=== PATIENT | female | born 1980 | race Caucasian/White ===

== ENCOUNTER 2017-11-02 09:28 | Emergency (ER) | payer OTHER ==
[2017-11-02 09:49] VITALS: BP 97/65
--- NOTE | 2017-11-02 10:08 | UC ---
Skin Complaint HPI - HPI Summary HPI Summary: 37 y/o presents to the urgent c/o red rash and yellowish discharge s/p insect bite since Saturday10/30/2017. Pt is concerned since yesterday she saw mild purulent discharge. seh has applied a [place]ien oint. medication Verutex w/o any improvement. Pain at touch is 4/10 and it is warm. Pt dneies fever, Hx of MRSA, SOB, chest pain, abdominal pain, SILVERMAN,N/V/D - History of Current Complaint Chief Complaint: UCSkin Time Seen by Provider: 11/02/17 09:49 Stated Complaint: BUG BITE Hx Obtained From: Patient Hx Last Menstrual Period: 10/18/17 ?: No Onset/Duration: Sudden Onset, Lasting Days - 4 days, Still Present, Worse Since - yesterday Skin Exposure Onset/Duration: Days Ago - 4 days Timing: Constant Onset Severity: Mild Current Severity: Mild Pain Intensity: 4 Pain Scale Used: 0-10 Numeric Location: Other - forehead rash s/p insect bite Character: Redness, Raised, Painful Aggravating Factor(s): Touch Alleviating Factor(s): OTC Meds Associated Signs & Symptoms: Positive: Rash, Drainage, Tenderness. Negative: Fever, Chills Related History: Possible Reaction to: Insect - Allergy/Home Medications Allergies/Adverse Reactions: Allergies Allergy/AdvReac Type Severity Reaction Status Date / Time No Known Allergies Allergy Verified 11/02/17 09:37 Home Medications: Home Medications Fusidic Acid 1 applic TID 11/02/17 [History Confirmed 11/02/17] Review of Systems Constitutional: Negative Skin: Rash - forehead red, painful and w/ yellowish drainage s/p insect bite Eyes: Negative ENT: Negative Respiratory: Negative Cardiovascular: Negative Gastrointestinal: Negative Genitourinary: Negative Motor: Negative Neurovascular: Negative Musculoskeletal: Negative Neurological: Negative Psychological: Negative Is Patient Immunocompromised?: No All Other Systems Reviewed And Are Negative: Yes PMH/Surg Hx/FS Hx/Imm Hx Previously Healthy: Yes - Pt denies PMHX - Surgical History Surgery Procedure, Year, and Place: Bilat eye surgery - myopia 2010 - Family History Known Family History: Positive: Cardiac Disease, Hypertension - Social History Occupation: Employed Full-time Lives: With Family Alcohol Use: None Substance Use Type: None Smoking Status (MU): Never Smoked Tobacco Physical Exam - Summary Physical Exam Summary: Vital Signs Reviewed: Yes General: well developed, well nourished female sitting in the examining table w/ o any apparent distress. Eyes: Positive: Conjunctiva Clear - PERRLA, EOMI ENT: Positive: Normal ENT inspection, Hearing grossly normal, Pharynx normal, TMs normal Neck: Positive: Supple, Nontender, No Lymphadenopathy Respiratory: Positive: Chest nontender, Lungs clear, Normal breath sounds Cardiovascular: Positive: RRR, No Murmur, Pulses Normal Abdomen Description: Positive: Nontender, No Organomegaly, Soft. Negative: CVA Tenderness (R), CVA Tenderness (L) Bowel Sounds: Positive: Present Musculoskeletal: Positive: Strength Intact, ROM Intact, No Edema Neurological Exam: Normal Psychological Exam: Normal Skin: Positive: rashes - mid forehead erythematous patch w/ indistinct borders , warm to touch, mild swelling and tender to palpation about 1.0cm x 0.8cm in size. central induration w/ mild yellowish drainage. Triage Information Reviewed: Yes Vital Signs: Initial Vital Signs Temp 98.2 F 11/02/17 09:40 Pulse 66 11/02/17 09:40 Resp 18 11/02/17 09:40 BP 97/65 11/02/17 09:40 Pulse Ox 98 11/02/17 09:40 Course/Dx - Course Course Of Treatment: 37 y/o presents to the urgent c/o red rash and yellowish discharge s/p insect bite since Saturday10/30/2017. Pt is concerned since yesterday she saw mild purulent discharge. seh has applied a [place] oint. medication Verutex w/o any improvement. Pain at touch is 4/10 and it is warm. Pt dneies fever, Hx of MRSA, SOB, chest pain, abdominal pain, SILVERMAN,N/V/D. Hx obtained. Pt w/mid forehead erythematous patch w/ indistinct borders, warm to touch, mild swelling and tender to palpation about 1.0cm x 0.8cm in size. central induration w/ mild yellowish drainage on examiantion. Pt w/ cellulitis. Pt Rx Keflex PO, and topical Bacitracin. PT Advised if rash doubles in size and if she develops fever to go to the ER for further treatment. D/c instructions explained. Pt understood and agreed w/ plan of care. - Differential Diagnoses - Skin Complaint Differential Diagnoses: Abscess, Cellulitis, MRSA, Tick Born Illness - Diagnoses Provider Diagnoses: 1- Cellulitis s/p insect bite Discharge - Sign-Out/Discharge Documenting (check all that apply): Discharge/Admit/Transfer - D/c home - Discharge Plan Condition: Stable Disposition: HOME Prescriptions: Bacitracin OINTMENT* 1 applic TOPICAL TID #1 tube Cephalexin CAP* [Keflex CAP*] 500 mg PO QID #28 cap Patient Education Materials: Cellulitis (ED) Referrals: [facility] [place] [facility] [Outside] - 3 Days Additional Instructions: 1-Please take full course of Antibiotic. 2- If redness and swelling doubles in size after 48 hrs of taking antibiotic and fever develops please go to the ER immediately. 3-Apply warm compresses x 2 days . Also keep wound dry and apply Bacitracin oint as directed. 4-Please F/u with your PCP or return at the urgent care in 3 days if not improvement of symptoms for further evaluation and treatment. - Billing Disposition and Condition Condition: STABLE Disposition: Home
== END 2017-11-02 10:25 | disposition home or self-care (01) ==
LOC: UCEAST 09:28
DX: S00.86XA Insect bite (nonvenomous) of other part of head, initial encounter (principal); L03.211 Cellulitis of face; W57.XXXA Bitten or stung by nonvenomous insect and other nonvenomous arthropods, initial encounter; Y93.9 Activity, unspecified; Y92.9 Unspecified place or not applicable; Z82.49 Family history of ischemic heart disease and other diseases of the circulatory system
CPT/HCPCS: 99202; G0463